=== PATIENT | female | born 1990 | race Caucasian/White ===

== ENCOUNTER 2016-10-09 19:23 | Emergency (ER) | payer OTHER ==
--- NOTE | ~2016-10-09 | CR132 ---
[facility]. [facility] A Service of [facility] RADIOLOGY TEXT RESULTS PATIENT: WOODROW HORN LOCATION: SED : [birth year] UNIT #: [id number] AGE: [address]: Amelie Fu SEX: F ORDER DR: [id number] [address] [address] [id number] MR#: [id number] Acc #: [id number] NAME: WOODROW HORN : 1990 SEX: F STUDY DATE/TIME: 10/09/2016 19:43 UNIT: SED ROOM: STUDY DESCRIPTION: CR Forearm 2 View Lt Attending Physician: Amelie Fu Pa-C Ordering Physician: Papi Cabrera M.D. Primary Care Physician: Primary Care Physician No MEDICAL IMAGING REPORT This report is preliminary unless electronic signature is present. EXAM Left forearm, 2 views HISTORY Arm pain after puncture wound 2 days ago. Swelling and redness. FINDINGS 2 views of the left forearm demonstrate mild soft tissue swelling over the posterior margin of the proximal forearm. No underlying opaque foreign body. Normal bone alignment of the radius and ulna. IMPRESSION No fracture. No opaque foreign body. Mild soft tissue swelling posterior margin of the proximal forearm. Dictated by... Robi Chappell M.D. THIS IS AN ELECTRONICALLY VERIFIED REPORT Robi Chappell M.D. at 10/10/2016 4:07 PM DFL/psc TD: 10/10/2016 00:34 JOB #: [id number] MEDICAL IMAGING REPORT Page 1 of 1
[~2016-10-09 19:23] MED LIST: AMOXICILLIN PO; AUGMENTIN PO; BUSPAR PO; CLEOCIN PO; FLEXERIL10 MG PO; HYDROCODON-ACE1 EACH PO; IBUPROFEN PO; KEFLEX500 M1 PO; KEFLEX500 M2 PO; LORATADINE PO; MELATONIN3 MG PO; MOTRIN600 M1 PO; NAPROSYN500 MG PO; NEURONTIN600 MG PO; NO MEDICATIONS; PEN-VEE K PO; PERCOCET 5-3251 TAB PO; PRENATAL1 TA1 PO; SEROQUEL PO; SEROQUEL XR200 MG PO; TOPAMAX; TOPAMAX PO; VYVANSE PO; XODOL 7.5-300 T1 TAB PO; YASMIN 28 TABLE1 TAB PO
[2016-10-09] MEDS ORDERED: TEGRETOL XR200 M1 PO (19:33)
[2016-10-09] MEDS ORDERED: EFFEXOR75 MG PO (19:33)
== END 2016-10-09 20:20 | disposition home or self-care (01) ==
LOC: SED 19:23
DX: L03.114 Cellulitis of left upper limb (principal); F43.10 Post-traumatic stress disorder, unspecified; F32.9 Major depressive disorder, single episode, unspecified; F17.200 Nicotine dependence, unspecified, uncomplicated; Z79.899 Other long term (current) drug therapy; Z88.8 Allergy status to other drugs, medicaments and biological substances; Z91.040 Latex allergy status
CPT/HCPCS: 73090; 99283